=== PATIENT | female | born 1970 | race Caucasian/White ===

== ENCOUNTER → 2018-02-21 | Outpatient (CLI) | payer OTHER | END | disposition home or self-care (01) | LOC: CFH 07:34 | PROVIDERS: ATTEND Obstetrics & Gynecology | DX: Z12.31 Encounter for screening mammogram for malignant neoplasm of breast (principal); Z80.3 Family history of malignant neoplasm of breast | CPT/HCPCS: 77063; 77067 ==

== ENCOUNTER → 2019-04-18 | Outpatient (CLI) | payer OTHER ==
[~2019-04-18] MED LIST: GADOTERATE 10 MMOL/20 ML VIAL ONE
== END | disposition home or self-care (01) ==
LOC: CFH 07:27
PROVIDERS: ATTEND Family Medicine
DX: N60.02 Solitary cyst of left breast (principal); N60.01 Solitary cyst of right breast
CPT/HCPCS: A9575; C8908; C8937

== ENCOUNTER → 2019-05-09 | Outpatient (CLI) | payer OTHER ==
[~2019-05-09] MED LIST changes: -GADOTERATE 10 MMOL/20 ML VIAL ONE; +OMNIPAQUE 350 MG/ML, 100ML BOTTLE ONE
== END | disposition home or self-care (01) ==
LOC: CFH 11:40
PROVIDERS: ATTEND Family Medicine
DX: R19.02 Left upper quadrant abdominal swelling, mass and lump (principal); R93.89 Abnormal findings on diagnostic imaging of other specified body structures; N63.22 Unspecified lump in the left breast, upper inner quadrant; M51.87 Other intervertebral disc disorders, lumbosacral region
CPT/HCPCS: 74160; Q9967

== ENCOUNTER → 2019-05-29 | Outpatient (CLI) | payer OTHER | END | disposition home or self-care (01) | LOC: CFH 07:32 | PROVIDERS: ATTEND Family Medicine | DX: M47.812 Spondylosis without myelopathy or radiculopathy, cervical region (principal); M48.02 Spinal stenosis, cervical region; M25.78 Osteophyte, vertebrae | CPT/HCPCS: 72050 ==

== ENCOUNTER 2019-08-08 14:11 | Outpatient (CLI) | payer OTHER | END 2019-08-08 23:59 | disposition home or self-care (01) | LOC: CFH 14:11 | PROVIDERS: ATTEND Physician Assistant | DX: S09.93XA Unspecified injury of face, initial encounter (principal); M25.571 Pain in right ankle and joints of right foot; X58.XXXA Exposure to other specified factors, initial encounter; Y93.89 Activity, other specified; Y92.89 Other specified places as the place of occurrence of the external cause; Y99.8 Other external cause status | CPT/HCPCS: 70486 ==